=== PATIENT | female | born 1950 | race Caucasian/White ===

== ENCOUNTER 2019-02-20 20:25 | Emergency (ER) | payer MEDICARE ==
[~2019-02-20] VITALS: Ht 157.5 cm; Wt 85.8 kg
[2019-02-20 20:27] VITALS: BP 155/72
--- NOTE | 2019-02-20 20:55 | PHYS DOC ---
Past History Past Medical History: Pneumonia Past Surgical History: No Surgical History Smoking: Non-smoker, Quit Greater Than 1 Year Alcohol Use: None Drug Use: None Adult General HPI HPI Patient is a 68-year-old female presents complaining of chest pain with coughing that began yesterday. Nonproductive cough. Nasal congestion is present. No sore throat. No difficulty breathing. No fever. This is similar to but not as bad as her previous episode of pneumonia. No radiation of the chest discomfort. The chest discomfort is across her chest, worse with deep breaths and coughing. She has not been on any long trips, no stasis, no known hypercoagulable state. No known trauma. No new leg swelling. No orthopnea or postural nocturnal dyspnea.[] Review of Systems Review of Systems Constitutional: Denies fever or chills [] Eyes: Denies change in visual acuity, redness, or eye pain [] HENT: Denies ear discomfort or sore throat , see history of present illness[] Respiratory: See history of present illness[] Cardiovascular: No additional information not addressed in HPI [] GI: Denies abdominal pain, nausea, vomiting, bloody stools or diarrhea [] : Denies dysuria or hematuria [] Musculoskeletal: Denies back pain or joint pain [] Integument: Denies rash or skin lesions [] Neurologic: Denies headache, focal weakness or sensory changes [] Endocrine: Denies polyuria or polydipsia [] All other systems were reviewed and found to be within normal limits, except as documented in this note. Physical Exam Physical Exam Constitutional: Well developed, well nourished, no acute distress, non-toxic appearance. [] HENT: Normocephalic, atraumatic, bilateral external ears normal, oropharynx moist, no oral exudates, nose normal. [] Eyes: PERRLA, EOMI, conjunctiva normal, no discharge. [] Neck: Normal range of motion, no tenderness, supple, no stridor. [] Cardiovascular:Heart rate regular rhythm, no murmur [] Lungs & Thorax: Bilateral breath sounds with scattered wheezes and crackles[] Abdomen: Bowel sounds normal, soft, no tenderness, no masses, no pulsatile ma sses. [] Skin: Warm, dry, no erythema, no rash. [] Back: No tenderness, no CVA tenderness. [] Extremities: No tenderness, no cyanosis, no clubbing, ROM intact, 1+ pretibial edema bilaterally symmetric. [] Neurologic: Alert and oriented X 3, normal motor function, normal sensory function, no focal deficits noted. [] Psychologic: Affect normal, judgement normal, mood normal. [] EKG EKG EKG shows a sinus rhythm at 79 bpm, normal axis, normal QTC, no ST elevation. Interpreted by me at 2035. No old EKG available for comparison.[] Radiology/Procedures Radiology/Procedures Chest x-ray shows no infiltrate, no effusion, no pneumothorax[] Course & Med Decision Making Course & Med Decision Making Pertinent Labs and Imaging studies reviewed. (See chart for details) ED course: Patient arrived, was placed in bed, and tolerated exam well. She was given aspirin by EMS. She was given a breathing treatment while in the emergency department which improved her breath sounds. Oxygen level remained good. Her heart rate didn't increase with the breathing treatment. She was transported to and from radiology with any complications. After return of laboratory and imaging studies, these were discussed with the patient and her daughter, who voiced understanding. All questions were answered. She was discharged in improved condition. Yelena decision making: There is no evidence of pneumonia or pneumothorax. This does not appear to be an acute coronary syndrome. No evidence of this being a pulmonary embolism. This appears to be more of a bronchitis type of picture possibly with some COPD given that she is a former smoker stopping approximately 5 years ago. Will treat with breathing treatments, antitussives, and p rophylactic antibiotics.[] Dragon Disclaimer Dragon Disclaimer This electronic medical record was generated, in whole or in part, using a voice recognition dictation system. Departure Departure: Impression: Primary Impression: Acute bronchitis Disposition: HOME, SELF-CARE Condition: IMPROVED Patient Instructions: Acute Bronchitis Additional Instructions: Follow-up with your regular doctor in 2 days. If you do not have a regular doctor list of local primary care physicians will be provided for you. Drink plenty of fluids. Return to the ER if worsening difficulty wreathing, worsening chest discomfort, or any other concerns. Scripts D-Methorphan Hb/Prometh Hcl (PROMETHAZINE-DM SYRUP) 118 Ml Syrup 5 ML PO PRN Q4HRS for CONGESTION, #120 ML Prov: OSFIA BOOTHE DO 02/20/19 Meloxicam (MELOXICAM) 7.5 Mg Tablet 7.5 MG PO DAILY for PAIN, #20 TAB Prov: SOFIA BOOTHE DO 02/20/19 Doxycycline Hyclate (DOXYCYCLINE HYCLATE) 100 Mg Tablet 1 TAB PO BID for bronchitis, #20 TAB Prov: SOFIA BOOTHE DO 02/20/19 Albuterol Sulfate (VENTOLIN HFA INHALER) 18 Gm Hfa.aer.ad 2 PUFF IH PRN Q4HRS PRN for FOR ASTHMA, #1 INHALER 0 Refills Prov: SOFIA BOOTHE DO 02/20/19 Problem Qualifiers Primary Impression: Acute bronchitis Bronchitis organism: unspecified organism Qualified Codes: J20.9 - Acute bronchitis, unspecified SOFIA BOOTHE DO Feb 20, 2019 20:55
[2019-02-20] MEDS ORDERED: ASPIRIN 325 MG TABLET PO ONE (21:00)
[2019-02-20] MEDS ORDERED: IPRATRPIUM/ALBUTEROL 0.5/2.5MG 3 ML NEBU. NEB ONE (21:00)
[2019-02-20 21:13] LABS: BASO # 0.2 x10^3/uL (0.0-0.2); BASO % 1 % (0-3); EOS # 0.2 x10^3/uL (0.0-0.7); EOS % 1 % (0-3); HEMATOCRIT 43.2 % (36.0-47.0); LYMPH # 2.2 x10^3/uL (1.0-4.8); LYMPH % 20 % (24-48); MEAN CORPUSCULAR HEMOGLOBIN 31 pg (25-35); MEAN CORPUSCULAR HGB CONC 32 g/dL (31-37); MEAN CORPUSCULAR VOLUME 94 fL (79-100); MONO # 0.7 x10^3/uL (0.0-1.1); MONO % 6 % (0-9); NEUT # 7.9 x10^3uL (1.8-7.7); NEUT % 71 % (31-73); PLATELET COUNT 155 x10^3/uL (140-400); RED BLOOD COUNT 4.58 x10^6/uL (3.50-5.40); RED CELL DISTRIBUTION WIDTH 13.6 % (11.5-14.5); WHITE BLOOD COUNT 11.2 x10^3/uL (4.0-11.0)
[2019-02-20 21:38] LABS: ALBUMIN 3.8 g/dL (3.4-5.0); ALBUMIN/GLOBULIN RATIO 1.1 (1.0-1.7); CALCIUM 9.2 mg/dL (8.5-10.1); CREATININE 0.9 mg/dL (0.6-1.0); GFR 62.6; POTASSIUM 3.9 mmol/L (3.5-5.1); TOTAL BILIRUBIN 0.4 mg/dL (0.2-1.0); TOTAL PROTEIN 7.4 g/dL (6.4-8.2)
[2019-02-20] MEDS ORDERED: D-ME118S2 PO (22:07)
[2019-02-20] MEDS ORDERED: MELO7.5T29 PO (22:07)
[2019-02-20] MEDS ORDERED: DOXY100T PO (22:07)
[2019-02-20] MEDS ORDERED: ALBU2.5V8 IH (22:07)
[2019-02-20] MEDS ORDERED: ALBUTEROL SULFATE 8GM INHALER. ONE (22:13)
--- NOTE | 2019-02-20 23:31 | RAD ---
PA and lateral chest radiographs 02/18/2019 CLINICAL HISTORY: Cough and chest pain. PA and lateral digital radiographs of chest were obtained. Comparison study is dated 04/30/2018. The cardiac silhouette is mildly enlarged. The thoracic aorta is mildly tortuous. Atherosclerotic calcification of the thoracic aorta is seen. No acute pulmonary infiltrate is seen. No pleural effusion or pneumothorax is noted. Degenerative changes are seen involving the thoracic spine. IMPRESSION: No acute abnormality is seen. Electronically signed by: Eric Feliciano MD (02/20/2019 11:28 PM) [facility]
== END 2019-02-20 22:20 | disposition home or self-care (01) ==
LOC: ER 20:25
DX: J20.9 Acute bronchitis, unspecified (principal); Z87.891 Personal history of nicotine dependence
CPT/HCPCS: 36415; 71046; 80053; 83735; 83880; 84484; 85025; 85610; 85730; 87040; 94640; 99285; J7620

== ENCOUNTER 2021-02-09 16:50 | Emergency (ER) | payer MEDICARE ==
[~2021-02-09] VITALS: Ht 157.5 cm; Wt 92.6 kg
[~2021-02-09 16:50] MED LIST: ALBU2.5V8 IH; DOXY100T PO; MELO7.5T29 PO; PROM118S10 PO
--- NOTE | 2021-02-09 17:39 | PHYS DOC ---
Past History Past Medical History: Pneumonia (BETZAIDA TEMPLE MD) Past Surgical History: Tubal ligation (BETZAIDA TEMPLE MD) Smoking: Non-smoker, Quit Greater Than 1 Year Alcohol Use: None Drug Use: None (BETZAIDA TEMPLE MD) General Adult EDM: Chief Complaint: FLANK PAIN HPI: HPI: Patient is a 70 year old Female who presents with above hx and complaints (BETZAIDA TEMPLE MD) HPI: Patient is a 70-year-old female who presents to the emergency department with chief complaint of left and right low back pain for the past week and a half. Patient denies any injury to her low back. Patient states it just started aurora ting. Patient denies any chest pains, shortness of breath, abdominal pains, increased thirst or increased urination, patient denies any urinary tract infection type signs and symptoms, denies vaginal rashes, denies vaginal discharge or STI concerns. Patient denies recent fever or chills, denies loss of taste or loss of smell, denies extremity pain. Patient denies swelling to her extremities or rashes of her skin. Patient denies nausea, vomiting, or diarrhea or seeing blood in her stool or urine. Patient denies incontinence of stool or urine, denies urinary retention. Patient denies numbness or tingling to her buttocks area or periarea. Patient states she used to be a cigarette smoker but stopped 8 years ago, denies alcohol consumption or illicit drug use. Patient denies any other physical complaints or physical concerns. Patient states she has no primary care physician, has no allergies to medications, and has no health history. Patient's daughter at bedside states that the patient has a history of COPD, does not see a primary care doctor and has never followed up from her admission 4 years ago for a COPD exacerbation. Patient's daughter states that she was worried because the patient's bilateral lower extremities have been swollen and her feet turn blue at times. Patient states that she does not find her legs are always swollen and denies any pain. Patient states that her daughter is concerns are exaggerated and the patient does not feel she needs to be seen for these problems. (SHANNON CONRAD APRN) Review of Systems: Review of Systems: Constitutional: Denies fever or chills Eyes: Denies change in visual acuity HENT: Denies nasal congestion or sore throat Respiratory: Denies cough or shortness of breath Cardiovascular: Denies chest pain or edema GI: Denies abdominal pain, nausea, vomiting, bloody stools or diarrhea : Denies dysuria Musculoskeletal: Denies back pain or joint pain Integument: Denies rash Neurologic: Denies headache, focal weakness or sensory changes Endocrine: Denies polyuria or polydipsia Lymphatic: Denies swollen glands Psychiatric: Denies depression or anxiety (BETZAIDA TEMPLE MD) Review of Systems: 14 body systems of review of systems have been reviewed. See HPI for pertinent positives and negative responses, otherwise all other systems are negative, nonpertinent or noncontributory. (SHANNON CONRAD APRN) Current Medications: Current Meds: Patient reports she takes no prescription medications. (SHANNON CONRAD APRN) Allergies: Allergies: Allergies Coded Allergies Type Severity Reaction Last Updated Verified No Known Drug Allergies 02/20/19 No (BETZAIDA TEMPLE MD) Physical Exam: PE: Constitutional: Well developed, well nourished, no acute distress, non-toxic appearance. [] HENT: Normocephalic, atraumatic, bilateral external ears normal, oropharynx moist, no oral exudates, nose normal. [] Eyes: PERRLA, EOMI, conjunctiva normal, no discharge. [] Neck: Normal range of motion, no tenderness, supple, no stridor. [] Cardiovascular:Heart rate regular rhythm, no murmur [] Lungs & Thorax: Bilateral breath sounds clear to auscultation [] Abdomen: Bowel sounds normal, soft, no tenderness, no masses, no pulsatile masses. [] Skin: Warm, dry, no erythema, no rash. [] Back: No tenderness, no CVA tenderness. [] Extremities: No tenderness, no cyanosis, no clubbing, ROM intact, no edema. [] Neurologic: Alert and oriented X 3, normal motor function, normal sensory function, no focal deficits noted. [] Psychologic: Affect normal, judgement normal, mood normal. [] (BETZAIDA TEMPLE MD) PE: Constitutional: Well developed, well nourished, no acute distress, non-toxic appearance. 70-year-old female in no apparent distress. HENT: Normocephalic, atraumatic. Eyes: Conjunctiva normal, no discharge. Neck: Normal range of motion, no stridor. Cardiovascular: No cyanosis appreciated, distal cap refill less than 2 seconds. Lungs & Thorax: Patient is in no respiratory distress, no audible adventitious lung sounds appreciated. Abdomen: Nontender, no abnormalities noted. Bowel sounds normal per auscultation. No areas of ecchymosis or skin discoloration of the abdomen. Skin: Warm, dry, no erythema, no rash. Back: No tenderness, no deformities. Extremities: No tenderness, no cyanosis, no clubbing, ROM intact, no edema. Except for bilateral lower extremities, 1+ pitting edema, no discoloration or c yanosis appreciated, distal cap refill less than 2 seconds, patient reports pain with palpation to lower extremity area just above ankles, 2+ dorsalis pedis/posterior tibial pulses appreciated. No erythema appreciated. Negative Homans' sign, no pain to the popliteal region bilaterally. Neurologic: Alert and oriented X 3, normal motor function, normal sensory function, no focal deficits noted. Psychologic: Affect normal, judgement normal, mood normal. (SHANNON CONRAD APRN) Current Patient Data: Vital Signs: Vital Signs Date Time Temp Pulse Resp B/P (MAP) Pulse Ox O2 Delivery O2 Flow Rate FiO2 02/09/21 16:50 97.7 77 16 141/86 97 Room Air (BETZAIDA TEMPLE MD) EKG: EKG: [] (BETZAIDA TEMPLE MD) EKG: EKG performed at 2020 by ED nursing staff shows a normal sinus rhythm without ectopy, UT interval 0.152, QTc interval 0.430, no acute STEMI, no ACS, no acute ischemia appreciated, EKG interpreted by ED attending physician Dr. Temple. (SHANNON CONRAD APRN) Radiology/Procedures: Radiology/Procedures: [] (BETZAIDA TEMPLE MD) Radiology/Procedures: PATIENT: RENE PRESTON ACCOUNT: [id number] : 1950 LOCATION: ER AGE: 70 SEX: F EXAM STATUS: REG ER ORD. PHYSICIAN: SHANNON CONRAD APRN REASON: LOWER EXTREMITY EDEMA PROCEDURE: CHEST PA & LATERAL PA and lateral chest. HISTORY: Lower extremity edema PA and lateral views of the chest were compared with a study from February 2019. There is no pneumothorax or pleural effusion. Heart is normal in size. Lungs are free of infiltrates. IMPRESSION: 1. No acute chest disease. Electronically signed by: Migel Almonte MD (02/09/2021 7:47 PM) [facility] DICTATED AND SIGNED BY: MIGEL ALMONTE MD DATE: 02/09/211944 CC: SHANNON CONRAD APRN; BETZAIDA TEMPLE MD; PCP,NO ~MTH0 0 (SHANNON CONRAD APRN) Heart Score: Risk Factors: Risk Factors: DM, Current or recent (<one month) smoker, HTN, HLP, family history of CAD, obesity. Risk Scores: Score 0 - 3: 2.5% MACE over next 6 weeks - Discharge Home Score 4 - 6: 20.3% MACE over next 6 weeks - Admit for Clinical Observation Score 7 - 10: 72.7% MACE over next 6 weeks - Early Invasive Strategies (BETZAIDA TEMPLE MD) C/O Chest Pain: No (SHANNON CONRAD APRN) Course & Med Decision Making: Course & Med Decision Making Pertinent Labs and Imaging studies reviewed. (See chart for details) [] (BETZAIDA TEMPLE MD) Course & Med Decision Making 70-year-old female, vital signs reviewed, resents emergency department with a chief complaint of low back pains for the past week and a half. Patient's physical presentation consistent with sciatica pain. No saddle anesthesia appreciated. Related to patient's bilateral lower extremity edema, and daughter's concerns of lower extremity swelling and patient's refusal to follow up for her COPD history, will order cardiopulmonary work-up. Patient is amenable to this plan. Patient's daughter states she is amenable to a cardiopulmonary work-up. Patient's urine was not infected, showed few bacteria, this is most likely a dirty catch, there was no leukocyte esterase, no blood, no nitrites. Patient's labs unremarkable, patient's EKG unremarkable, patient's proBNP nonconcerning, troponin I nonconcerning, chest x-ray nonconcerning for proximal process. Patient was given an additional Flexeril and 1 tablet of 5/325 [place] for 7 out of 10 pain. Patient's lower extremity edema most likely related to venous insufficiency, there is no pain, there is no difference in size, no Homans' sign, no pain with palpation, there is no significant temperature difference, patient's Wells score low likelihood for DVT. Patient does not smoke cigarettes, patient states she does not raise her lower extremities as her daughter has asked her to in the past. Discussed with patient salt intake and diet control, elevating lower extremities above the level of the heart several times a day to reduce lower extremity swelling. Discussed with patient follow-up with primary care for ongoing evaluation of healthcare needs. Upon reevaluation of the patient, patient states her pain is about a 4 or 5 out of 10. Patient states the pain medications are helping and she is feeling much better and wishes to go home now. Patient gave verbal understanding of discharge home instructions, follow-up with PCP soon, strict return to ER precautions and concerns, patient states she feels much better and is ready to go home, patient was discharged home without incident. (SHANNON CONRAD APRN) [place] Disclaimer: [place] Disclaimer: This electronic medical record was generated, in whole or in part, using a voice recognition dictation system. (BETZAIDA TEMPLE MD) Departure Departure: Impression: Primary Impression: Low back pain Qualified Codes: M54.5 - Low back pain Disposition: HOME / SELF CARE / HOMELESS Condition: GOOD Referrals: PCP,NO (PCP) Patient Instructions: Back Pain, Adult Additional Instructions: You were seen today in the emergency department for low back pain. You had not complained of other problems however your daughter had stated she is worried about your lower extremity swelling. Your lab work did not show any concerning findings that would suggest a congestive heart failure or endorgan damage, your EKG did not show any concerning findings of heart attack or heart problems, your chest x-ray did not show any problems with the cardiac or pulmonary system, there was no pneumonia noted on your x-ray. You did not have any findings that would suggest a blood clot or DVT. With these findings, this does not indicate that you have been given a clean bill of health, as we discussed I encourage you to follow-up with a primary care physician to have further evaluation of your ongoing symptoms. I am prescribing you a muscle relaxer and 600 mg ibuprofen for low back pain. Please use ice packs or warm compresses to your low back to assist with pain control. You had indicated that you do not have a primary care provider. You may consider using the [facility] group located at [address] [place] [address]. Their telephone number is area code [phone]. Please call Wednesday morning for an appointment to be seen this week. I encourage you to return to the emergency department immediately for worsening symptoms or other concerns. EMERGENCY DEPARTMENT GENERAL DISCHARGE INSTRUCTIONS Thank you for coming to [facility] (ED) today and trusting us with you care. We trust that you had a positivie experience in our Emergency Department. If you wish to speak to the department management, you may call the director at [phone]. YOUR FOLLOW UP INSTRUCTIONS ARE FOLLOWS: 1. Do you have a private Doctor? If you do not have a private doctor, please ask for a resource list of physicians or clinics that may be able to assist you with follow up care. 2. The Emergency Physician has interpreted your x-rays. The X-Ray specialist will also review them. If there is a change in the findings, you will be notified in 48 hours when at all possible. 3. A lab test or culture has been done, your results will be reviewed and you will be notified if you need a change in treatment. ADDITIONAL INSTRUCTIONS AND INFORMATION: 1. Your care today has been supervised by a physician who is specially trained in emergency care. Many problems require more than one evaluation for a complete diagnosis and treatment. We recommend that you schedule your follow up appointment as recommended to ensure complete treatment of you illness or injury. If you are unable to obtain follow up care and continue to have a problem, or if your condition worsens, we recommend that you return to the ED. 2. We are not able to safely determine your condition over the phone nor are we able to give sound medical advice over the phone. For these safety reasons, if you call for medical advice we will ask you to come to the ED for further evaluation. 3. If you have any questions regarding these discharge instructions please call the ED at [phone]. SAFETY INFORMATION: In the interest of safety, wellness, and injury prevention; we encourage you to wear your sealbelt, if you smoke; quite smoking, and we encourage family to use a protective helmet for bicycling and other sporting events that present an increased risk for head injury. IF YOUR SYMPTOMS WORSEN OR NEW SYMPTOMS DEVELOP, OR YOU HAVE CONCERNS ABOUT YOUR CONDITION; OR IF YOUR CONDITION WORSENS WHILE YOU ARE WAITING FOR YOUR FOLLOW UP APPOINTMENT; EITHER CONTACT YOUR PRIMARY CARE DOCTOR, THE PHYSICIAN WHOSE NAME AND NUMBER YOU WERE GIVEN, OR RETURN TO THE ED IMMEDIATELY. Scripts Ibuprofen (IBUPROFEN) 600 Mg Tablet 600 MG PO Q6-8HRS PRN for PAIN, #20 TAB 0 Refills Prov: SHANNON CONARD APRN 02/09/21 Cyclobenzaprine Hcl (CYCLOBENZAPRINE HCL) 10 Mg Tablet 1 TAB PO TID PRN PRN for PAIN, #12 TAB 0 Refills Prov: SHANNON CONRAD APRN 02/09/21 Attending Signature Attending Signature I have participated in the care of this patient and I have reviewed and agree with all pertinent clinical information above including history, exam, and recommendations. (BETZAIDA TEMPLE MD) BETZAIDA TEMPLE MD Feb 09, 2021 17:39 SHANNON CONRAD APRN Feb 09, 2021 19:36
[2021-02-09] MEDS ORDERED: IBUPROFEN 600 MG TABLET. PO ONE (19:30)
[2021-02-09] MEDS ORDERED: ACETAMINOPHEN 325 MG TABLET PO ONE (19:30)
[2021-02-09 19:34] LABS: BACTERIA,URINE FEW /HPF (0-FEW); BILIRUBIN,URINE NEG (NEG); CLARITY,URINE HAZY; COLOR,URINE YELLOW; GLUCOSE,URINE NEG (NEG); NITRITE,URINE NEG (NEG); RBC,URINE 0 /HPF (0-2); SQUAMOUS EPITHELIAL CELL,UR MOD /LPF; UROBILINOGEN,URINE 0.2 mg/dL (0.2 mg/dL); WBC,URINE 0 /HPF (0-4)
--- NOTE | 2021-02-09 19:49 | RAD ---
PA and lateral chest. HISTORY: Lower extremity edema PA and lateral views of the chest were compared with a study from February 2019. There is no pneumothorax or pleural effusion. Heart is normal in size. Lungs are free of infiltrates. IMPRESSION: 1. No acute chest disease. Electronically signed by: Migel Almonte MD (02/09/2021 7:47 PM) [facility]
[2021-02-09 20:05] LABS: BASO % 0 % (0-3); EOS # 0.2 x10^3/uL (0.0-0.7); EOS % 2 % (0-3); HEMATOCRIT 45.1 % (36.0-47.0); HEMOGLOBIN 14.7 g/dL (12.0-15.5); LYMPH # 3.3 x10^3/uL (1.0-4.8); LYMPH % 27 % (24-48); MEAN CORPUSCULAR HEMOGLOBIN 31 pg (25-35); MEAN CORPUSCULAR HGB CONC 33 g/dL (31-37); MEAN CORPUSCULAR VOLUME 93 fL (79-100); MONO # 0.8 x10^3/uL (0.0-1.1); MONO % 7 % (0-9); NEUT % 65 % (31-73); PLATELET COUNT 159 x10^3/uL (140-400); RED BLOOD COUNT 4.84 x10^6/uL (3.50-5.40); RED CELL DISTRIBUTION WIDTH 14.7 % (11.5-14.5); WHITE BLOOD COUNT 12.3 x10^3/uL (4.0-11.0)
[2021-02-09 20:29] LABS: GFR 55.1; POTASSIUM 4.1 mmol/L (3.5-5.1)
[2021-02-09 20:41] LABS: ALBUMIN 3.7 g/dL (3.4-5.0); ALBUMIN/GLOBULIN RATIO 1.2 (1.0-1.7); TOTAL BILIRUBIN 0.2 mg/dL (0.2-1.0); TOTAL PROTEIN 6.9 g/dL (6.4-8.2)
[2021-02-09 20:48] LABS: CALCIUM 8.9 mg/dL (8.5-10.1)
[2021-02-09] MEDS ORDERED: CYCLOBENZAPRINE 10 MG TABLET. PO ONE (21:00)
[2021-02-09] MEDS ORDERED: HYDROcodone/APAP 5/325MG 1 TAB TABLET PO ONE (21:00)
--- NOTE | 2021-02-09 21:02 | EKG ---
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
[2021-02-09 21:24] VITALS: BP 133/67
[2021-02-09] MEDS ORDERED: IBUP600T16 PO (21:28)
[2021-02-09] MEDS ORDERED: CYCL-331 PO (21:28)
== END 2021-02-09 21:35 | disposition home or self-care (01) ==
LOC: ER 16:50
DX: M54.5 Low back pain (principal); R60.0 Localized edema; Z98.51 Tubal ligation status; Z87.891 Personal history of nicotine dependence
CPT/HCPCS: 36415; 71046; 80053; 81001; 83880; 84484; 85025; 93005; 99285-25